=== PATIENT | female | born 1960 | race Caucasian/White ===

== ENCOUNTER 2016-11-08 08:39 | Emergency (ER) | payer OTHER ==
[~2016-11-08] VITALS: Ht 160 cm; Wt 67.1 kg
[2016-11-08 08:45] VITALS: BP 175/110
== END 2016-11-08 09:11 | disposition home or self-care (01) ==
LOC: ER 08:39
DX: H66.91 Otitis media, unspecified, right ear (principal); J02.9 Acute pharyngitis, unspecified

== ENCOUNTER 2016-12-15 12:53 | Emergency (ER) | payer OTHER ==
[~2016-12-15] VITALS: Ht 160 cm; Wt 65.8 kg
[2016-12-15 13:08] VITALS: BP 171/110
== END 2016-12-15 13:54 | disposition home or self-care (01) ==
LOC: ER 12:55
DX: I10 Essential (primary) hypertension (principal)